=== PATIENT | male | born 1995 | race Two or more races ===

== ENCOUNTER 2024-09-21 16:21 | Emergency (ER) | payer OTHER ==
[~2024-09-21] VITALS: Ht 180.3 cm; Wt 81.6 kg
[2024-09-21] MEDS ORDERED: CEFTRIAXONE SODIUM 1,000 MG VIAL IM ONE (17:00)
[2024-09-21] MEDS ORDERED: KETOROLAC TROMETHAMINE 60 MG VIAL IM ONE (17:00)
[2024-09-21] MEDS ORDERED: AMOX1TAB5 PO (17:02)
[2024-09-21] MEDS ORDERED: KETO10TA2 PO (17:02)
[2024-09-21] MEDS ORDERED: PEPCID AC20 MG PO (17:02)
== END 2024-09-21 18:25 | disposition home or self-care (01) ==
LOC: ER 16:22
DX: K08.89 Other specified disorders of teeth and supporting structures (principal)

== ENCOUNTER 2025-04-04 12:26 | Emergency (ER) | payer OTHER ==
[~2025-04-04] VITALS: Ht 180.3 cm; Wt 80.7 kg
[~2025-04-04 12:26] MED LIST: AMOX1TAB5 PO; KETO10TA2 PO; PEPCID AC20 MG PO
[2025-04-04 12:52] VITALS: BP 126/71; O2SAT 99
[2025-04-04] MEDS ORDERED: CEFTRIAXONE SODIUM 1,000 MG VIAL IM STA (14:52)
[2025-04-04] MEDS ORDERED: CEFTRIAXONE SODIUM 1,000 MG VIAL ONE (15:18)
[2025-04-04 15:51] LABS: BASO % 0.3 % (0.1-1.2); EOS # 0.09 (0.04-0.54); EOS % 1.4 % (0.7-7.0); HEMATOCRIT 42.9 % (40.1-51.0); LYMPH # 1.11 (1.18-3.74); LYMPH % 16.7 % (19.3-53.1); MEAN CORPUSCULAR HEMOGLOBIN 30.2 pg (25.6-32.2); MONO # 0.65 (0.24-0.82); MONO % 9.8 % (4.7-12.5); NEUT # 4.75 (1.56-6.13); NEUT % 71.6 % (34.0-71.1); PLATELET COUNT 172 K/uL (163-369); RED BLOOD COUNT 4.97 M/uL (4.63-6.08); RED CELL DISTRIBUTION WIDTH 11.9 % (11.6-14.4)
[2025-04-04 16:25] LABS: ALBUMIN 4.1 gm/dL (3.4-5.0); BILIRUBIN TOTAL 1.13 mg/dL (0.3-1.2); CALCIUM 9.4 mg/dL (8.5-10.1); CREATININE SERUM 0.89 mg/dL (0.70-1.30); GFR 101.78; GLOBULINA 3.4 G/DL (2.4-3.5); POTASSIUM 4.82 mEq/L (3.5-5.1); TOTAL PROTEIN 7.5 gm/dL (6.4-8.2)
[2025-04-04 16:27] LABS: PH,URINE 6.5 (5.0-8.0); URINE APPEARANCE Clear; URINE BILIRRUBIN Negative (NEGATIVE); URINE BLOOD Negative; URINE COLOR Yellow; URINE GLUCOSE Negative (NEGATIVE); URINE KETONE Negative (NEGATIVE); URINE LEUKOCYTE Small; URINE NITRATE Negative; URINE PROTEIN Negative (NEGATIVE)
[2025-04-04 16:31] LABS: URINE BACTERIA 189.7 uL (0.0-1933); URINE EPITHELIAL CELLS 5.8 uL (0.0-38.8); URINE WBC 48.9 uL (0.0-23.2)
[2025-04-04 16:35] LABS: URINE CAST 0.14 uL (0.0-1.40); URINE RBC 0.8 uL (0.0-20.8)
[2025-04-04 16:40] LABS: COVID-19 AG NEGATIVE (NEGATIVE)
[2025-04-04 16:50] LABS: INFLUENZA A AG NEGATIVE (NEGATIVE); INFLUENZA B AG NEGATIVE (NEGATIVE)
[2025-04-04] MEDS ORDERED: LEVOFLOXACIN750 MG PO (20:01)
== END 2025-04-04 20:19 | disposition home or self-care (01) ==
LOC: ER 12:46
PROVIDERS: General Practice
DX: N39.0 Urinary tract infection, site not specified (principal); H66.91 Otitis media, unspecified, right ear; Z20.822 Contact with and (suspected) exposure to COVID-19